=== PATIENT | male | born 1965 | race Caucasian/White ===

== ENCOUNTER 2025-10-30 20:03 | Emergency (ER) | payer OTHER, SELFPAY ==
--- OUTSIDE RECORDS SUMMARY | 2025-10-30 20:08 | XMS_ITS | Clinical Summary ---
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 Active sertraline (Zoloft) 100 mg tablet Take 100 mg by mouth 1 (one) time each day. Active sertraline (Zoloft) 50 mg tablet Take 50 mg by mouth 1 (one) time each day. Active ibuprofen (Advil,Motrin) 200 mg tablet Take 400 mg by mouth every 6 (six) hours if needed for mild pain (1-3). Active hydroCHLOROthiaz odalis (Microzide) 12.5 mg capsule Take 12.5 mg by mouth 1 (one) time each day. Active Social History Tobacco Use Types Packs/Day Years Used Date Smoking Tobacco: Never Assessed Sex and Gender Information Value Date Recorded Sex Assigned at Not on file Legal Sex Male 11:19 PM CDT Gender Identity Not on file Sexual Orientation Not on file Last Filed Vital Signs Vital Sign Reading Time Taken Comments Blood Pressure 124/82 03/14/2023 4:54 AM CDT Pulse 72 03/14/2023 4:54 AM CDT Temperature 36.3 C (97.3 F) 03/14/2023 4:54 AM CDT Respiratory Rate 19 03/14/2023 4:54 AM CDT Oxygen Saturation 96% 03/14/2023 4:54 AM CDT Inhaled Oxygen Concentration - - Weight 96.8 kg (213 lb 6.4 oz) 03/13/2023 11:40 PM CDT Height 175.3 cm (5' 9 ) 03/13/2023 11:40 PM CDT Body Mass Index 31.51 03/13/2023 11:40 PM CDT Plan of Treatment Health Maintenance Due Date Last Done Comments CT Colonography 1965 Colonoscopy 1965 Colorectal Cancer Screening 1965 FIT-DNA 1965 FIT 1965 FOBT 1965 Lipid Panel 1965 Sigmoidoscopy 1964 MMR Vaccines (1 of 1 - Stand carlos series) 1965 DTaP,Tdap,and Td Vaccines (1 - Tdap) 1971 Varicella Vaccines (1 of 2 - 13+ 2-dose series) 1977 Depression Screening 1982 Hepatitis C Screening 1982 Social Drivers of Health (SDoH) 1982 Pneumococcal Vaccines: 50+ Y ears (1 of 1 - PCV) 2014 Zoster Vaccines (1 of 2) 2014 COVID-19 Vaccines (1 - 2024- season) 2025 Influenza Vaccine (#1) 2025 RSV Vaccines (1 - 1-dose 75+ series) 2039 HIB Vaccines Aged Out No longer eligi ble based on patient's age to complete this topic HPV Vaccines Aged Out No longer eligi ble based on patient's age to complete this topic Hepatitis A Vaccines Aged Out No long er eligible based on patient's age to complete this topic Hepatitis B Vaccines Aged Out No long er eligible based on patient's age to complete this topic IPV Vaccines Aged Out No longer eligi ble based on patient's age to complete this topic Meningococcal B Vaccine Aged Out No l onger eligible based on patient's age to complete this topic Meningococcal Vaccine Aged Out No adrienne vannessa eligible based on patient's age to complete this topic Rotavirus Vaccines Aged Out No longer eligible based on patient's age to complete this topic Insurance [employer]
[2025-10-30 20:09] VITALS: BP 142/90; PULSE 105; RESP 24; TEMP 37.4; O2SAT 98; BMI 35.1
--- NOTE | 2025-10-30 20:34 | ECG_ITS ---
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
[2025-10-30 21:01] LABS: Respiratory Syncytial Virus Ce NEGATIVE (Negative)
--- NOTE | 2025-10-30 21:02 | XRR_ITS ---
PROCEDURE INFORMATION: Exam: XR Chest Exam date and time: 10/30/2025 9:04 PM Age: 60 years old Clinical indication: Shortness of breath; Additional info: SOB TECHNIQUE: Imaging protocol: Radiologic exam of the chest. Views: 1 view. COMPARISON: No relevant prior studies available. FINDINGS: Lungs: Unremarkable. No consolidation. Pleural spaces: Unremarkable. No pleural effusion. No pneumothorax. Heart/Mediastinum: Unremarkable. No cardiomegaly. Bones/joints: Unremarkable. XR/XR chest 1V portable [id number] IMPRESSION: No acute findings.
[2025-10-30 21:05] LABS: SARS-CoV-2 PCR Positive (Negative)
--- NOTE | 2025-10-30 21:06 | PC.NURSE ---
lab called with critical he is covid positive dr. cooney notified.
[2025-10-30 21:11] LABS: Hematocrit 38.9 % (37-53); Hemoglobin 13.50 g/dL (11.27-16.99); Mean Corpuscular HGB Conc 34.7 g/dL (30-55); Mean Corpuscular Hemoglobin 32.2 pg (27-33); Mean Corpuscular Volume 92.8 fl (82-101); Nucleated Red Blood Cells % 0 %; Platelet Count 175 10^3/cmm (157-399); Red Blood Count 4.19 10^6/uL (3.85-5.65); White Blood Count 8.25 10^3/uL (3.29-11.43)
[2025-10-30 21:24] VITALS: BP 135/88; PULSE 85; O2SAT 94
--- NOTE | 2025-10-30 21:28 | ED_ITS ---
HPI - SOB/Dyspnea 2 General: Chief Complaint: Shortness of Breath/Dyspnea Stated Complaint: N/V SOB, Dizzy Time Seen by Provider: 10/30/25 20:31 History of Present Illness: HPI Narrative: Patient is a 60-year-old male with a history of hypertension, prior gallbladder removal, and multiple remote fractures (ankle, leg, jaw), who presents with a one-week history of progressive illness. Initial symptoms included gastrointestinal upset with vomiting and chills, followed by persistent congestion and worsening shortness of breath. The patient reports severe dyspnea, especially today, with episodes of dizziness and feeling unwell. He has had difficulty keeping food down, though he was able to tolerate small amounts of soup and fluids recently. No current abdominal pain or urinary symptoms. He denies tobacco use and has no significant cardiac history. He has tried nasal saline rinses, Afrin, Mucinex but has still had heavy congestion. Related Data Previous Rx's ?Medication ?Instructions ?Recorded amoxicillin 875 mg-potassium 1 tab PO BID 7 days #14 t abs 10/30/25 clavulanate 125 mg tablet Allergies Allergy/AdvReac Type Severity Reaction Status Date / Time No Known Allergies Allergy Unverified 03/27/23 09:47 Review of Systems 2 General: Reports: 10 or more systems reviewed and unremarkable except in HPI and below Physical Exam 2 Narrative: EXAM NARRATIVE: Fatigued but overall well-appearing, nontoxic, mildly tachycardic, low-grade temp, no acute distress. Heavy nasal congestion and facial sinus tenderness with referred breath sounds but breathing comfortably on room air, saturating well, able to speak in full sentences without getting short of breath. Mild sinus tachycardia, normotensive, slightly delayed cap refill, 2+ pulses throughout. Abdomen soft, nontender nondistended. GCS 15, moving all 4 extremities symmetrically and spontaneously. Course 2 Vital Signs: Vital signs: Vital Signs Temperature 99.3 F 10/30/25 20:09 Pulse Rate 82 10/30/25 23:00 Respiratory Rate 24 H 10/30/25 20:09 Blood Pressure 115/77 10/30/25 23:00 Pulse Oximetry 94 10/30/25 23:00 Oxygen Delivery Me thod Room Air 10/30/25 21:24 MDM - SOB/Dyspnea Medical Decision Making -ddx: Sinusitis, URI, pneumonia, dehydration, UTI, enteritis, cystitis, environmental allergies - Patient with 1 week of viral-like symptoms, initially said brief GI symptoms and then heavy nasal congestion, fatigue, now 1 day of shortness of breath, mildly tachycardic and low-grade temp, overall well-appearing, has not recently been on antibiotics, will start with 1 L of fluids, basic infectious workup, provide Toradol and reassess. - Patient felt improved after fluids, his workup was overall reassuring, had a mildly elevated CRP, his COVID was positive, chest x-ray was negative for any pneumonia, fluid overload. Due to the degree of his heavy congestion and despite his aggressive attempts at improving that his symptoms persisted so in addition to supportive care recommendations for COVID, he was started on the Augmentin to treat a presumed bacterial sinusitis, advised to follow-up with PCP in a few days, strict return precautions given. Lab Data 10/30/25 20:45 Labs/Radiology: Radiology Impressions Chest X-Ray 10/30/25 21:02 IMPRESSION: No acute findings. Laboratory Results WBC 8.25 10^3/uL (3.29-11.43) 10/30/25 20:45 RBC 4.19 10^6/uL (3.85-5.65) 10/30/25 20:45 Hgb 13.50 g/dL (11.27-16.99) 10/30/25 20:45 Hct 38.9 % (37-53) 10/30/25 20:45 MCV 92.8 fl (82-101) 10/30/25 20:45 MCH 32.2 pg (27-33) 10/30/25 20:45 MCHC 34.7 g/dL (30-55) 10/30/25 20:45 RDW 12.8 % (12.1-15.1) 10/30/25 20:45 Plt Count 175 10^3/cmm (157-399) 10/30/25 20:45 MPV 9.6 fL (7.4-10.4) 10/30/25 20:45 Neut % (Auto) 66.3 % 10/30/25 20:45 Lymph % (Auto) 20.2 % 10/30/25 20:45 [place] % (Auto) 9.7 % 10/30/25 20:45 Eos % (Auto) 3.2 % 10/30/25 20:45 Baso % (Auto) 0.2 % 10/30/25 20:45 Neut # (Auto) 5.47 10^3/uL (1.8-7.7) 10/30/25 20:45 Lymph # (Auto) 1.7 10^3/uL (0.8-4.8) 10/30/25 20:45 [place] # (Auto) 0.8 10^3/uL (0.2-0.9) 10/30/25 20:45 Eos # (Auto) 0.3 10^3/uL (0.0-0.8) 10/30/25 20:45 Baso # (Auto) 0.0 10^3/uL (0.0-0.1) 10/30/25 20:45 Nucleated RBC % (auto) 0 % 10/30/25 20:45 Nucleated RBCs # 0.0 /100WBC 10/30/25 20:45 Lactic Acid 1.4 mmol/L (0.5-2.2) 10/30/25 20:45 Phosphorus 2.9 mg/dL (2.5-4.5) 10/30/25 20:45 Magnesium 1.8 mg/dL (1.7-2.3) 10/30/25 20:45 C-React Prot High Sens 11.540 mg/dL (0.0-0.3) H 10/30/25 20:45 Lipase 30 U/L (13-60) 10/30/25 20:45 Procalcitonin 0.14 ng/mL (0-0.5) 10/30/25 20:45 Urine Color Yellow (Yellow) 10/30/25: Urine Appearance Clear (CLEAR) 10/30/25: Urine pH 6.0 (5-7) 10/30/25: Ur Specific [place] 1.008 (1.005-1.030) 10/30/25: Urine Protein Negative (Negative) 10/30/25: Urine Glucose (UA) Negative (Normal) 10/30/25: Urine Ketones Negative (Negative) 10/30/25: Urine Blood Negative (Negative) 10/30/25: Urine Nitrate Negative (Negative) 12/21/25 21:22 Urine Bilirubin Negative (Negative) 10/30/25 21:22 Urine Urobilinogen 1.0 mg/dL (Negative) 10/30/25 21:22 Ur Leukocyte Esterase Negative (Negative) 10/30/25 21:22 Urine RBC 0-2 /hpf (0-2) 10/30/25 21:22 Urine WBC 0-5 /hpf (0-5) 10/30/25 21:22 Ur Squamous Epith Cells 0-5 /hpf (0-5) 10/30/25 21:22 Amorphous Sediment Not Reportable 10/30/25 21:22 Urine Bacteria None seen /hpf (NONE) 10/30/25 21:22 Hyaline Casts 0-4 /lpf H 10/30/25 21:22 Influenza A (PCR) Negative (Negative) 10/30/25 20:16 Influenza Type B (PCR) Negative (Negative) 10/30/25 20:16 RSV (PCR) Negative (Negative) 10/30/25 20:16 SARS-CoV-2 (PCR) Positive (Negative) A 10/30/25 20:16 All radiology interpretation(s) finalized by discharge Discharge Plan Discharge Patient Disposition: Home Clinical Impression: COVID, Sinusitis Condition: Stable Prescriptions: New amoxicillin-pot clavulanate 875-125 mg tablet 1 tab PO BID 7 Days Qty: 14 0RF Discharge Orders: Discharge ED (Routine); Ordered 10/30/25 Ordered By: Froylan Drew Referrals: Vidhya Garsia [Primary Care Provider, [facility]] Discharge Diet: Usual diet Discharge Activity: Resume usual activity Patient Instructions: Opioid Safety, Pain Management, Patient Portal & Dominique Instructions Activity Restrictions/Additional Instructions: You were seen for your congestion, fevers, you were evaluated with labs and a chest x-ray which found you to have COVID and you most likely have a bacterial sinus infection on top of this. There were no other complications and you had normal oxygen level so you are deemed stable to be discharged home. For treatment of your sinus infection, you were started on Augmentin, take this twice a day for at least 5 days for a total of 7 days if you are not feeling better at that time. Ensure you stay hydrated and continue with aggressive decongestion as you have been. Return to the ED with severe worsening of your breathing, fevers that do not improve with Tylenol, inability to eat or drink, any other emergent concerns. Print Language: Burmese Coding Level of Care Code ED Orchestra Director for Kayla Irene
[2025-10-30 21:29] LABS: Glucose Urine UA Negative (Normal); Nitrate Urine Negative (Negative); Specific Gravity, Urine 1.008 (1.005-1.030)
[2025-10-30 21:34] LABS: Add Urine Microscopic? YES
[2025-10-30 21:37] LABS: Lactic Sepsis W/Reflex 1.4 mmol/L (0.5-2.2)
[2025-10-30 21:50] LABS: Procalcitonin 0.14 ng/mL (0-0.5)
[2025-10-30 22:00] LABS: Lipase 30 U/L (13-60); Magnesium 1.8 mg/dL (1.7-2.3)
[2025-10-30 22:59] VITALS: BP 115/77; PULSE 82; O2SAT 94
[2025-10-30 23:00] VITALS: BP 115/77; PULSE 82; O2SAT 94
== END 2025-10-30 23:03 | disposition home or self-care (01) ==
PROVIDERS: Emergency Provider Student in an Organized Health Care Education/Training Program; PCP Registered Nurse
DX: U07.1 COVID-19 (principal); J32.9 Chronic sinusitis, unspecified; Z11.52 Encounter for screening for COVID-19; I10 Essential (primary) hypertension
CPT/HCPCS: 36415; 71045; 81001; 83605; 83690; 83735; 84100; 84145; 85025; 86141; 87637; 93005; 96361; 96374; 99285; J1885; J7030; J9999